=== PATIENT | female | born 1945 | race Caucasian/White ===

== ENCOUNTER → 2019-06-13 | Day surgery (SDC) | payer MEDICARE, BC ==
[2019-06-12 12:15] LABS: BASOPHILS % 0.3 % (0.0-1.0); EOSINOPHILS # (AUTO) 0.1 (0.0-0.4); EOSINOPHILS % 1.4 % (0.0-6.0); HEMOGLOBIN 12.8 g/dL (12.0-16.0); LYMPHOCYTES # (AUTO) 1.1 (1.0-3.2); LYMPHOCYTES % 16.5 % (18.0-39.1); MEAN CORPUSCULAR HEMOGLOBIN 29.3 pg (28-32); MEAN CORPUSCULAR VOLUME 91.5 fL (81-99); MONOCYTES # (AUTO) 0.6 (0.2-0.8); MONOCYTES % 8.6 % (4.4-11.3); NEUTROPHILS # (AUTO) 4.8 (2.1-6.9); NEUTROPHILS % 72.9 % (38.7-80.0); PLATELET COUNT 291 x10e3/uL (140-360); RED BLOOD COUNT 4.37 x10e6/uL (3.6-5.1); RED CELL DISTRIBUTION WIDTH 13.4 % (11.7-14.4)
[~2019-06-13] MED LIST: ALPRAZOLAM0.25 MG PO; AMBIEN10 MG PO; AMLODIPINE BESYL5 MG PO; ATORVASTATIN CA10 MG PO; BACLOFEN10 MG PO; BUSPIRONE HCL5 MG PO; CLONIDINE HCL0.1 MG PO; DEXAMETHASONE SOD PHOS 10 MG/1 ML VIAL ONE; IOPAMIDOL 200 MG/ML 20 ML VIAL IT ONE; LIDOCAINE HCL 1% 30ML-PF VIAL ONE; LIDOCAINE HCL 2% LOCAL INJ 5 ML SDV VIAL INJ ONE; LOSARTAN POTAS100 MG PO; LOSARTAN-HCTZ1 EAC1 PO; MELOXICAM7.5 MG PO; MIDAZOLAM HCL 2 MG/2 ML VIAL ONE; NORCO 10-325 T1 EACH PO; OMEPRAZOLE40 MG PO; PERCOCET 10-321 EACH PO; PROPOFOL IV EMULSION 10 MG/ML 20 ML VIAL ONE; RANITIDINE HCL300 MG PO
[2019-06-13 08:20] VITALS: BP 115/73
== END | disposition home or self-care (01) ==
LOC: OR 06:14
PROVIDERS: ATTEND Physical Medicine & Rehabilitation Pain Medicine
DX: M54.16 Radiculopathy, lumbar region (principal); M43.16 Spondylolisthesis, lumbar region; M47.896 Other spondylosis, lumbar region; I10 Essential (primary) hypertension; Z01.810 Encounter for preprocedural cardiovascular examination; Z01.812 Encounter for preprocedural laboratory examination; Z68.37 Body mass index [BMI] 37.0-37.9, adult
CPT/HCPCS: 36415; 64483; 64484; 85025; 93005; J1100; J2001 ×2; J2250; J2704; Q9967; 77003

== ENCOUNTER → 2019-06-20 | Day surgery (SDC) | payer MEDICARE, BC ==
[~2019-06-20] MED LIST changes: +BUPIVACAINE 0.25% 30ML SDV INJ ONE; +DEXAMETHASONE SOD PHOS INJ 4 MG/ML VIAL ONE; +FENTANYL CITRATE/PF 100MCG/2 ML INJ ONE; -IOPAMIDOL 200 MG/ML 20 ML VIAL IT ONE; +IOPAMIDOL 300 MG/ML 15ML VIAL IT ONE; +ONDANSETRON HCL INJ 2MG/ML 2ML 2 MG/ML VIAL ONE
[2019-06-20 07:24] VITALS: BP 122/85
== END | disposition home or self-care (01) ==
LOC: OR 05:11
PROVIDERS: ATTEND Physical Medicine & Rehabilitation Pain Medicine
DX: M54.16 Radiculopathy, lumbar region (principal); K21.9 Gastro-esophageal reflux disease without esophagitis; I10 Essential (primary) hypertension
CPT/HCPCS: 64483; 64484; 77003; J1100 ×2; J2001 ×2; J2250; J2405; J2704; J3010; Q9967